=== PATIENT | female | born 1995 ===

== ENCOUNTER 2017-07-11 11:35 | Emergency (ER) | payer MEDICAID ==
[2017-07-11 11:39] VITALS: BP 101/67; PULSE 71; TEMP 98; BMI 22.6
[2017-07-11 12:00] VITALS: O2SAT 98
--- NOTE | 2017-07-11 12:36 | ED PDOC ---
HPI: Female Pain Time Seen by Provider: 07/11/17 12:05 Chief Complaint (Nursing): Abdominal Pain Chief Complaint (Provider): Genitourinary Problems History Per: Patient History/Exam Limitations: no limitations Onset/Duration Of Symptoms: Days (x1) Current Symptoms Are (Timing): Still Present Associated Symptoms: denies: Fever, Nausea, Vomiting, Back Pain Additional Complaint(s): Carmen Haq is a 21 year old female with no past medical history who is presenting to the ED with complaints of urinary frequency and hesitancy onset last night. Patient denies any nausea, vomiting, fever, abdominal pain, or back pain. She offers no other medical complaints at this time. Pt states she has had UTIs in the past and this feels the same. LMP, last month PMD: none provided Past Medical History Reviewed: Historical Data, Nursing Documentation, Vital Signs Vital Signs: Last Vital Signs Temp 98 F 07/11/17 11:38 Pulse 71 07/11/17 11:38 Resp BP 101/67 07/11/17 11:38 Pulse Ox 98 07/11/17 11:58 - Medical History PMH: No Chronic Diseases Denies: Chronic Kidney Disease - Surgical History Surgical History: No Surg Hx - Family History Family History: States: Unknown Family Hx - Living Arrangements Living Arrangements: With Family - Social History Current smoker - smoking cessation education provided: No Alcohol: None Drugs: Denies - Home Medications Home Medications: Ambulatory Orders Medication Instructions Recorded Nitrofurantoin Macrocrystals 100 mg PO BID #13 cap 12/23/15 [Macrobid] Ibuprofen [Motrin] 600 mg PO Q6H PRN #20 tab 02/08/17 Polyethylene Glycol 3350 [Miralax] 17 gm PO DAILY PRN #1 bottle 02/08/17 Nitrofurantoin Macrocrystals 100 mg PO BID #10 cap 07/11/17 [Macrobid] Nitrofurantoin Macrocrystals 100 mg PO BID #10 cap 07/11/17 [Macrobid] - Allergies Allergies/Adverse Reactions: Allergies Allergy/AdvReac Type Severity Reaction Status Date / Time No Known Allergies Allergy Verified 07/11/17 11:57 Review of Systems ROS Statement: Except As Marked, All Systems Reviewed And Found Negative Constitutional: Negative for: Fever Gastrointestinal: Negative for: Nausea, Vomiting, Abdominal Pain Genitourinary Female: Positive for: Frequency. Negative for: Vaginal Bleeding, Pelvic Pain Musculoskeletal: Negative for: Back Pain Physical Exam - Reviewed Nursing Documentation Reviewed: Yes Vital Signs Reviewed: Yes - Physical Exam Appears: Positive for: Well, Non-toxic, No Acute Distress Head Exam: Positive for: ATRAUMATIC, NORMAL INSPECTION, NORMOCEPHALIC Skin: Positive for: Normal Color Eye Exam: Positive for: Normal appearance ENT: Positive for: Normal ENT Inspection Neck: Positive for: Normal Cardiovascular/Chest: Positive for: Regular Rate, Rhythm. Negative for: Murmur Respiratory: Positive for: Normal Breath Sounds. Negative for: Accessory Muscle Use, Respiratory Distress Back: Positive for: Normal Inspection. Negative for: L CVA Tenderness, R CVA Tenderness Extremity: Positive for: Normal ROM Neurologic/Psych: Positive for: Alert, Oriented. Negative for: Motor/Sensory Deficits - ECG O2 Sat by Pulse Oximetry: 98 (RA) Pulse Ox Interpretation: Normal Medical Decision Making Medical Decision Making: Time: 12:16 Plan: --ED Urine --ED Urine Dipstick --Urine Culture Upon provider reevaluation patient is feeling better, is medically stable, and requires no further treatment in the ED at this time. Patient will be discharged with Rx for antibiotics. Counseling was provided and all questions were answered regarding diagnosis and need for follow up with PMD. There is agreement to discharge plan. Return if symptoms persist or worsen. Scribe Attestation: Documented by Joselin Burris, acting as a scribe for Tierra Ly PA-C. Provider Scribe Attestation: All medical record entries made by the Scribe were at my direction and personally dictated by me. I have reviewed the chart and agree that the record accurately reflects my personal performance of the history, physical exam, medical decision making, and the department course for this patient. I have also personally directed, reviewed, and agree with the discharge instructions and disposition. Disposition - Clinical Impression Clinical Impression: UTI in - Patient ED Disposition Is Patient to be Admitted: No Counseled Patient/Family Regarding: Diagnosis, Need For Followup, Rx Given - Disposition Disposition: Routine/Home Disposition Time: 12:30 Condition: GOOD Additional Instructions: Please begin vitamins. Prescriptions: Nitrofurantoin Macrocrystals [Macrobid] 100 mg PO BID #10 cap Nitrofurantoin Macrocrystals [Macrobid] 100 mg PO BID #10 cap Instructions: Urinary Tract Infection, Adult (DC) Forms: [id number] ([place])
== END 2017-07-11 12:50 | disposition home or self-care (01) ==
LOC: H.ER 11:35
DX: N39.0 Urinary tract infection, site not specified (principal)